=== PATIENT | male | born 1945 | race Caucasian/White ===

== ENCOUNTER → 2017-05-27 | Outpatient (REF) | payer MEDICARE ==
[~2017-05-27] MED LIST: /WARF25TA PO; ACET50TA PO; ALLO10TA PO; CEPH500C PO; FEOS200T2 PO; FURO20TA2 PO; GLIP5TAB2 PO; JANU100T PO; KLOR8TAB PO; LASI20TA PO; LIVA2TAB PO; MAGN400C2 PO; MULTTAB4 PO; OMEG12002 PO; OMEP20CA3 PO; PERC7.5T12 PO; PERCOCET PO; PIOG30TA4 PO; PRIN10TA PO; RANI1TAB6 PO; RED600TA PO; REDCAP3 PO; SPIR25TA2 PO; VICT18IN SC; ZEST40TA PO
[2017-05-27 14:33] LABS: PERCENT SATURATION 25.4 % (19.7-50.0)
== END ==
LOC: M LAB REF 13:12
PROVIDERS: ATTEND Internal Medicine Nephrology
DX: D64.9 Anemia, unspecified (principal)

== ENCOUNTER → 2017-11-11 | Outpatient (CLI) | payer MEDICARE ==
[2017-11-11 12:23] LABS: HEMATOCRIT 40.6 % (42.0-52.0); HEMOGLOBIN 13.6 g/dl (14.0-18.0); MEAN CORPUSCULAR HEMOGLOBIN 30.4 pg (27.0-33.0); MEAN CORPUSCULAR HGB CONC 33.5 g/dl (32.0-36.5); MEAN CORPUSCULAR VOLUME 90.6 fl (80.0-96.0); PLATELET COUNT, AUTOMATED 229 10^3/uL (150-450); RED BLOOD COUNT 4.48 10^6/uL (4.30-6.10); RED CELL DISTRIBUTION WIDTH 12.4 % (11.5-14.5); WHITE BLOOD COUNT 8.8 10^3/uL (4.0-10.0)
[2017-11-11 12:28] LABS: APPEARANCE, URINE CLEAR (CLEAR); BACTERIA, URINE AUTO NEGATIVE (NEGATIVE); BILIRUBIN, URINE AUTO NEGATIVE (NEGATIVE); BLOOD, URINE BLOOD NEGATIVE (NEGATIVE); COLOR, URINE YELLOW (YELLOW); GLUCOSE, URINE (UA) AUTO 1+ mg/dL (NEGATIVE); KETONE, URINE AUTO NEGATIVE (NEGATIVE); LEUKOCYTE ESTERASE, URINE AUTO NEGATIVE (NEGATIVE); NITRITE, URINE AUTO NEGATIVE (NEGATIVE); PROTEIN, URINE AUTO NEGATIVE (NEGATIVE); RBC, URINE AUTO 3 /HPF (0-3); SPECIFIC GRAVITY URINE AUTO 1.018 (1.002-1.035); SQUAMOUS EPITHELIAL CELL UR AU 0 /HPF (0-6); UROBILINOGEN, URINE AUTO 0.2 mg/dL (0.0-2.0); WBC, URINE AUTO 0 /HPF (0-3)
[2017-11-11 12:36] LABS: PROTHROMBIN TIME 12.2 SECONDS (12.4-14.5)
[2017-11-11 13:01] LABS: ERYTHROCYTE SEDIMENTATION RATE 27 mm/hr (0-20)
[2017-11-11 13:09] LABS: ALBUMIN 3.8 GM/DL (3.2-5.2); ALBUMIN/GLOBULIN RATIO 1.09 (1.00-1.93); ALKALINE PHOSPHATASE 76 U/L (45-117); ALT/SGPT 44 U/L (12-78); ANION GAP 8 MEQ/L (8-16); AST/SGOT 23 U/L (7-37); BILIRUBIN,TOTAL 0.2 MG/DL (0.2-1.0); BLOOD UREA NITROGEN 30 MG/DL (7-18); CARBON DIOXIDE LEVEL 25 MEQ/L (21-32); CHLORIDE LEVEL 106 MEQ/L (98-107); CREATININE FOR GFR 1.48 MG/DL (0.70-1.30); GLUCOSE, FASTING 252 MG/DL (70-100); POTASSIUM SERUM 4.4 MEQ/L (3.5-5.1); SODIUM LEVEL 139 MEQ/L (136-145); TOTAL PROTEIN 7.3 GM/DL (6.4-8.2)
== END ==
LOC: M ADMPAT 10:25
DX: Z01.818 Encounter for other preprocedural examination (principal); M17.12 Unilateral primary osteoarthritis, left knee; I10 Essential (primary) hypertension; E11.9 Type 2 diabetes mellitus without complications; N18.3 Chronic kidney disease, stage 3 (moderate); I25.10 Atherosclerotic heart disease of native coronary artery without angina pectoris; E78.00 Pure hypercholesterolemia, unspecified; Z79.899 Other long term (current) drug therapy
CPT/HCPCS: 71046

== ENCOUNTER 2017-12-02 10:59 | Inpatient (IN) | payer MEDICARE ==
[2017-12-02] MEDS: LR 1,000 ML IV ×3 (11:30→17:51)
[2017-12-02] MEDS ORDERED: LIDOCAINE 1% MDV 20ML VIAL SQ (11:30)
[2017-12-02] MEDS: ACETAMINOPHEN 500 MG TAB PO (12:05)
[2017-12-02] MEDS ORDERED: MIDAZOLAM INJ 2 MG/2 ML VIAL (J2250) As Ordered ×3 (12:13→13:01)
[2017-12-02] MEDS ORDERED: fentaNYL 100 MCG/2 ML INJECTION (J3010) As Ordered ×2 (12:13→13:01)
[2017-12-02] MEDS: BUPIVACAINE HCL 0.25% 30 ML VIAL As Ordered (12:35)
[2017-12-02] MEDS: fentaNYL 100 MCG/2 ML INJECTION (J3010) IV (12:48)
[2017-12-02] MEDS: MIDAZOLAM INJ 2 MG/2 ML VIAL (J2250) IV ×3 (12:48→12:54)
[2017-12-02] MEDS ORDERED: ONDANSETRON 4MG/2ML VIAL (J2405) As Ordered (13:01)
[2017-12-02] MEDS ORDERED: LIDOCAINE 2% INJ 100 MG/5 ML SDV (FOR ANES.) As Ordered (13:01)
[2017-12-02] MEDS ORDERED: PROPOFOL 200 MG/20 ML VIAL As Ordered (13:01)
[2017-12-02] MEDS ORDERED: ePHEDrine SULFATE 25 MG/5 ML(5MG/ML) SYRINGE As Ordered (13:20)
[2017-12-02 13:45] LABS: BEDSIDE GLUCOSE 151 MG/DL (83-110)
[2017-12-02] MEDS: EPINEPHrine INJ 1 MG/ML 1ML AMP As Ordered (14:05)
[2017-12-02] MEDS: ceFAZolin 1GM INJ (J0690 PER 500MG) As Ordered (14:06)
[2017-12-02] MEDS: TRANEXAMIC ACID 100 MG/ML 10ML VIAL As Ordered (14:06)
[2017-12-02] MEDS: BUPIVACAINE LIPOSOME/PF 1.3% 20 ML VIAL (13.3MG/ML)(EXPAREL) As Ordered (14:38)
[2017-12-02] MEDS: BUPIVACAINE HCL 0.25% 10 ML VIAL As Ordered (14:38)
[2017-12-02] MEDS ORDERED: fentaNYL 100 MCG/2 ML INJECTION (J3010) IV (15:30)
[2017-12-02] MEDS ORDERED: NALBUPHINE HCL 10 MG/ML AMP (J2300) IV (15:30)
[2017-12-02] MEDS ORDERED: diphenhydrAMINE INJ 50MG/ML VIAL (J1200) IV (15:30)
[2017-12-02] MEDS ORDERED: MORPHINE 10 MG/ML 1ML VIAL (J2270) IV (15:30)
[2017-12-02] MEDS ORDERED: ONDANSETRON 4MG/2ML VIAL (J2405) IV ×2 (15:30)
[2017-12-02] MEDS ORDERED: EPIDURAL/PCA KEYS XX (15:30)
[2017-12-02] MEDS ORDERED: NALOXONE INJ 0.4 MG/1 ML VIAL (J2310) IV (15:30)
[2017-12-02] MEDS ORDERED: PERCOCET 5MG/325MG TAB PO (15:30)
[2017-12-02] MEDS ORDERED: ACETAMINOPHEN TAB 650MG DOSE (2X325MG) PO (15:45)
[2017-12-02] MEDS ORDERED: FLEET ENEMA PR (15:45)
[2017-12-02] MEDS ORDERED: GLUCAGON FOR INJ 1 MG VIAL (J1610) SC (15:45)
[2017-12-02] MEDS ORDERED: GLUCOSE 4 GM CHEW TABLET PO (15:45)
[2017-12-02] MEDS: MORPHINE 1MG/ML IN 0.9% NACL 100ML IV BAG IV (15:45)
[2017-12-02] MEDS ORDERED: DEXTROSE 50% 50 ML SYRINGE IV (15:45)
[2017-12-02] MEDS ORDERED: LIDOCAINE 1% MDV 20ML VIAL (16:22)
[2017-12-02] MEDS ORDERED: ROPIvacaine 0.5% 30 ML INJECTION (J2795 PER 1MG) (16:22)
[2017-12-02] MEDS ORDERED: dexameTHASONE 10 MG/1 ML VIAL PRES.FREE (J1100) (16:22)
[2017-12-02] MEDS: HumaLOG INSULIN (NovoLOG) PER UNIT SC ×2 (17:52→21:23)
[2017-12-02] MEDS: WARFARIN SOD 5 MG TAB PO (17:52)
[2017-12-02] MEDS: VITAMIN D 1,000 INTERNATIONAL UNITS TABLET PO (17:53)
[2017-12-02] MEDS: MULTIVITAMINS/MINERALS THERAP 1 TAB PO (17:53)
[2017-12-02] MEDS: ALLOPURINOL 100 MG TAB PO (17:53)
[2017-12-02] MEDS: OMEPRAZOLE 20 MG CAP PO (21:22)
[2017-12-03] MEDS: LR 1,000 ML IV (04:15)
[2017-12-03] MEDS ORDERED: PERCOCET 5MG/325MG TAB PO (06:45)
[2017-12-03] MEDS ORDERED: ONDANSETRON 4 MG TAB (S0181) PO (06:45)
[2017-12-03 07:21] LABS: HEMATOCRIT 33.4 % (42.0-52.0); HEMOGLOBIN 11.5 g/dl (13.5-17.5); MEAN CORPUSCULAR HEMOGLOBIN 30.9 pg (27.0-33.0); MEAN CORPUSCULAR HGB CONC 34.4 g/dl (32.0-36.5); MEAN CORPUSCULAR VOLUME 89.8 fl (80.0-96.0); PLATELET COUNT, AUTOMATED 195 10^3/uL (150-450); RED BLOOD COUNT 3.72 10^6/uL (4.30-6.10); RED CELL DISTRIBUTION WIDTH 12.3 % (11.5-14.5); WHITE BLOOD COUNT 15.8 10^3/uL (4.0-10.0)
[2017-12-03 07:29] LABS: INR 1.07
[2017-12-03 07:33] LABS: ANION GAP 7 MEQ/L (8-16); BLOOD UREA NITROGEN 22 MG/DL (7-18); CALCIUM LEVEL 8.5 MG/DL (8.8-10.2); CARBON DIOXIDE LEVEL 25 MEQ/L (21-32); CHLORIDE LEVEL 105 MEQ/L (98-107); CREATININE FOR GFR 1.38 MG/DL (0.70-1.30); GLOMERULAR FILTRATION RATE 54.1 (>42); GLUCOSE, FASTING 270 MG/DL (70-100); POTASSIUM SERUM 4.4 MEQ/L (3.5-5.1); SODIUM LEVEL 137 MEQ/L (136-145)
[2017-12-03] MEDS: MOM 30ML SUSPENSION UDC PO (09:00)
[2017-12-03] MEDS: MIRALAX *UNIT DOSE* 17GM PACKET PO (09:00)
[2017-12-03] MEDS: SENOKOT S TAB PO (09:00)
[2017-12-03] MEDS: PERCOCET 5MG/325MG TAB PO (09:01)
[2017-12-03] MEDS: HumaLOG INSULIN (NovoLOG) PER UNIT SC (09:02)
[2017-12-03] MEDS: ALLOPURINOL 100 MG TAB PO (10:00)
[2017-12-03] MEDS: MULTIVITAMINS/MINERALS THERAP 1 TAB PO (10:00)
[2017-12-03] MEDS: OMEPRAZOLE 20 MG CAP PO (10:00)
[2017-12-03] MEDS: VITAMIN D 1,000 INTERNATIONAL UNITS TABLET PO (10:01)
[2017-12-03] MEDS: ENOXAPARIN 40 MG/0.4 ML SYRINGE (J1650) SC (10:13)
[2017-12-03 16:53] LABS: BEDSIDE GLUCOSE 328 MG/DL (83-110)
[2017-12-03 16:53] LABS: BEDSIDE GLUCOSE 231 MG/DL (83-110)
[2017-12-03] MEDS ORDERED: WARFARIN SOD 5 MG TAB PO (17:00)
== END 2017-12-03 12:00 | disposition home health service (06) | DRG 470 ==
LOC: M OR 10:59 → M MS5PR 16:11
PROVIDERS: Orthopaedic Surgery
PROC: 0SRD0J9 Replacement of Left Knee Joint with Synthetic Substitute, Cemented, Open Approach (ICD-10-PCS; principal; 2017-12-02 13:05)
DX: M17.12 Unilateral primary osteoarthritis, left knee (principal); E11.22 Type 2 diabetes mellitus with diabetic chronic kidney disease; I12.9 Hypertensive chronic kidney disease with stage 1 through stage 4 chronic kidney disease, or unspecified chronic kidney disease; K21.9 Gastro-esophageal reflux disease without esophagitis; R26.89 Other abnormalities of gait and mobility; M10.9 Gout, unspecified; G47.00 Insomnia, unspecified; J30.9 Allergic rhinitis, unspecified; D64.9 Anemia, unspecified; E78.5 Hyperlipidemia, unspecified; G47.30 Sleep apnea, unspecified; N18.3 Chronic kidney disease, stage 3 (moderate); Z79.82 Long term (current) use of aspirin; Z79.4 Long term (current) use of insulin; Z79.899 Other long term (current) drug therapy; Z96.651 Presence of right artificial knee joint; Z85.46 Personal history of malignant neoplasm of prostate; Z88.8 Allergy status to other drugs, medicaments and biological substances

== ENCOUNTER → 2017-12-05 | Outpatient (REF) | payer MEDICARE ==
[2017-12-05 13:42] LABS: INR 1.53; PROTHROMBIN TIME 18.8 SECONDS (12.4-14.5)
== END ==
LOC: M SHH 12:55
DX: Z79.01 Long term (current) use of anticoagulants (principal)
CPT/HCPCS: 85610

== ENCOUNTER → 2017-12-12 | Outpatient (REF) | payer MEDICARE ==
[2017-12-12 13:08] LABS: INR 2.23; PROTHROMBIN TIME 25.5 SECONDS (12.4-14.5)
== END ==
LOC: M SHH 12:47
DX: Z79.01 Long term (current) use of anticoagulants (principal)
CPT/HCPCS: 85610

== ENCOUNTER → 2017-12-16 | Outpatient (REF) | payer MEDICARE ==
[2017-12-16 13:24] LABS: INR 2.04; PROTHROMBIN TIME 23.8 SECONDS (12.4-14.5)
== END ==
LOC: M SHH 12:38
DX: Z51.81 Encounter for therapeutic drug level monitoring (principal); Z79.01 Long term (current) use of anticoagulants
CPT/HCPCS: 85610

== ENCOUNTER → 2017-12-19 | Outpatient (REF) | payer MEDICARE ==
[2017-12-19 10:39] LABS: INR 2.17
== END ==
LOC: M SHH 10:21
DX: Z79.01 Long term (current) use of anticoagulants (principal)
CPT/HCPCS: 85610

== ENCOUNTER → 2017-12-23 | Outpatient (REF) | payer MEDICARE ==
[2017-12-23 13:46] LABS: INR 1.77; PROTHROMBIN TIME 21.2 SECONDS (12.4-14.5)
== END ==
LOC: M SHH 13:21
DX: Z79.01 Long term (current) use of anticoagulants (principal)
CPT/HCPCS: 85610

== ENCOUNTER → 2017-12-26 | Outpatient (REF) | payer MEDICARE ==
[2017-12-26 12:57] LABS: PROTHROMBIN TIME 16.5 SECONDS (12.4-14.5)
== END ==
LOC: M SHH 12:32
DX: Z79.01 Long term (current) use of anticoagulants (principal)
CPT/HCPCS: 85610

== ENCOUNTER → 2017-12-30 | Outpatient (REF) | payer MEDICARE ==
[2017-12-30 12:15] LABS: INR 1.34; PROTHROMBIN TIME 16.9 SECONDS (12.4-14.5)
== END ==
LOC: M LABDRAW1 09:52
DX: Z79.01 Long term (current) use of anticoagulants (principal)
CPT/HCPCS: 85610

== ENCOUNTER → 2020-05-20 | Outpatient (CLI) | payer MEDICARE ==
[~2020-05-20] MED LIST changes: -/WARF25TA PO; -ACET50TA PO; +ASPI81TA26 PO; +COUM1TAB18 PO; +COUM2.5T17 PO; +FISH1360 PO; -LASI20TA PO; +LASI20TA3 PO; +MAPA500T17 PO; +MULTLIQ PO; +OMEP1CAP73 PO; -OMEP20CA3 PO; +PERC5TAB12 PO; +PIOG1TAB37 PO; -PIOG30TA4 PO; +RANI-397 PO; -RANI1TAB6 PO; +SPIR-10 PO; -SPIR25TA2 PO; +VITA100067 PO
--- NOTE | 2020-05-27 07:38 | SLEEPCENT ---
DATE: 05/20/2020 ORDERED BY: Samanta Ramirez PA-C Nocturnal polysomnography was performed for re-titration of pressure therapy in this patient with a prior history of obstructive sleep apnea syndrome. For testing, a [employer] Farrar nasal pillow device of small size was used, 9 cm of water pressure were applied to the circuit, and the lights were extinguished. Seven hours and 14 minutes of data were reviewed. There were 265 minutes of sleep identified. Sleep latency was short at 5.5 minutes. REM latency was mildly prolonged at 129 minutes. Sleep architecture was fair, there were two REM cycles noted, significant periods of wake were noted. Overall sleep efficiency was only 61.6%. The electrocardiogram showed a sinus rhythm with PVCs, average heart rate was 62 beats per minute. EEG showed reasonably normal waveforms for awake and sleep. Respiratory events were fully palliated with CPAP at a pressure of 9. Significant activity was noted in the limb leads despite the optimal CPAP pressure. The limb movement arousal index was 10.9. IMPRESSIONS: 1. Obstructive sleep apnea syndrome (G47.33). 2. Periodic limb movement disorder (G47.61). Limb movement arousal index 10.9. RECOMMENDATION: Nightly use of pressure therapy at 9 cm was sufficient to overcome any obstructive respiratory events that may have been experienced. Interventions to treat the frequency arousal from limb activity may improve the quality of the patients sleep. [facility]
== END ==
LOC: M SLEEP 20:00
PROVIDERS: ATTEND Nurse Practitioner Family
DX: G47.33 Obstructive sleep apnea (adult) (pediatric) (principal); G47.61 Periodic limb movement disorder

== ENCOUNTER → 2020-10-06 | Outpatient (CLI) | payer MEDICARE ==
[2020-10-06 13:27] LABS: BASO # 0.1 10^3/uL (0.0-0.2); BASO % 0.6 % (0.0-1.0); EOS # 0.2 10^3/uL (0.0-0.5); EOS % 1.8 % (0.0-3.0); HEMOGLOBIN 15.9 g/dl (13.5-17.5); LYMPH % 12.7 % (24.0-44.0); MEAN CORPUSCULAR HEMOGLOBIN 30.8 pg (27.0-33.0); MEAN CORPUSCULAR HGB CONC 33.1 g/dl (32.0-36.5); MONO # 0.7 10^3/uL (0.0-0.8); MONO % 8.6 % (0.0-5.0); NEUTROPHILS # 6.2 10^3/uL (1.5-8.5); NEUTROPHILS % 75.7 % (36.0-66.0); PLATELET COUNT, AUTOMATED 214 10^3/uL (150-450); RED BLOOD COUNT 5.16 10^6/uL (4.30-6.10); WHITE BLOOD COUNT 8.2 10^3/uL (4.0-10.0)
[2020-10-06 14:00] LABS: FREE T4 0.74 NG/DL (0.76-1.46); RHEUMATOID FACTOR QUANT < 10.0 IU/ML (<15.0)
[2020-10-06 14:08] LABS: ERYTHROCYTE SEDIMENTATION RATE 18 mm/hr (0-20)
[2020-10-07 17:12] LABS: ANTINUCLEAR ANTIBODIES DIRECT Negative (Negative); Lyme Disease IgG/IgM Antibodie <0.91 ISR (0.00-0.90); Lyme Disease IgM Ab Quantitati <0.80 index (0.00-0.79)
== END ==
LOC: M PLALAB 11:55
PROVIDERS: ATTEND Orthopaedic Surgery
DX: M25.531 Pain in right wrist (principal); Z79.899 Other long term (current) drug therapy

== ENCOUNTER → 2021-03-02 | Outpatient (REF) | payer MEDICARE ==
[2021-03-02 17:54] LABS: BASO % 0.5 % (0.0-1.0); EOS # 0.3 10^3/uL (0.0-0.5); EOS % 4.5 % (0.0-3.0); HEMATOCRIT 49.9 % (42.0-52.0); HEMOGLOBIN 15.9 g/dl (13.5-17.5); LYMPH # 1.3 10^3/uL (1.5-5.0); MEAN CORPUSCULAR HEMOGLOBIN 30.5 pg (27.0-33.0); MEAN CORPUSCULAR HGB CONC 31.9 g/dl (32.0-36.5); MEAN CORPUSCULAR VOLUME 95.6 fl (80.0-96.0); MONO # 0.7 10^3/uL (0.0-0.8); MONO % 8.9 % (2.0-8.0); NEUTROPHILS % 67.7 % (36.0-66.0); PLATELET COUNT, AUTOMATED 241 10^3/uL (150-450); RED BLOOD COUNT 5.22 10^6/uL (4.30-6.10); WHITE BLOOD COUNT 7.3 10^3/uL (4.0-10.0)
[2021-03-02 18:00] LABS: APPEARANCE, URINE TURBID (CLEAR); BACTERIA, URINE AUTO NEGATIVE (NEGATIVE); BILIRUBIN, URINE AUTO NEGATIVE (NEGATIVE); BLOOD, URINE BLOOD NEGATIVE (NEGATIVE); COLOR, URINE YELLOW (YELLOW); GLUCOSE, URINE (UA) AUTO 3+ mg/dL (NEGATIVE); KETONE, URINE AUTO NEGATIVE (NEGATIVE); LEUKOCYTE ESTERASE, URINE AUTO NEGATIVE (NEGATIVE); NITRITE, URINE AUTO NEGATIVE (NEGATIVE); PROTEIN, URINE AUTO NEGATIVE (NEGATIVE); RBC, URINE AUTO 0 /HPF (0-3); SPECIFIC GRAVITY URINE AUTO 1.022 (1.002-1.035); SQUAMOUS EPITHELIAL CELL UR AU 0 /HPF (0-6); UROBILINOGEN, URINE AUTO 0.2 mg/dL (0.0-2.0); WBC, URINE AUTO 0 /HPF (0-3)
[2021-03-02 18:15] LABS: C REACTIVE PROTEIN QUANTITATIV 1.42 MG/DL (0.00-0.30); CALCIUM LEVEL 9.4 MG/DL (8.8-10.2); CREATININE FOR GFR 1.28 MG/DL (0.70-1.30); GLOMERULAR FILTRATION RATE 58.5 (>42); POTASSIUM SERUM 4.1 MEQ/L (3.5-5.1)
[2021-03-02 18:16] LABS: TOTAL PROTEIN,RANDOM URINE 21.2 MG/DL (0.0-12.0)
[2021-03-02 19:18] LABS: ERYTHROCYTE SEDIMENTATION RATE 25 mm/hr (0-20)
[2021-03-08 09:54] LABS: DRVV SCREEN 48.1 SEC
[2021-03-08 10:10] LABS: PTT LUPUS TYPE ANTICOAG SCREEN 1.2 (0-1.2)
[2021-03-08 10:19] LABS: DRVV CONFIRM 37.2 SEC; NORMALIZED RATIO 1.2 (0.00-1.20)
== END ==
LOC: M SFHCRHEU 10:39
PROVIDERS: ATTEND Internal Medicine
DX: M06.4 Inflammatory polyarthropathy (principal); M10.00 Idiopathic gout, unspecified site; N18.30 Chronic kidney disease, stage 3 unspecified

== ENCOUNTER → 2021-05-17 | Outpatient (CLI) | payer MEDICARE ==
--- NOTE | 2021-05-17 11:24 | REP ---
INDICATION: UNDIFFERENTIATED INFLAMMATORY ARTHRITIS COMPARISON: None. TECHNIQUE: Four views bilateral hands. FINDINGS: There is no evidence of acute fracture, dislocation, or intrinsic bone disease.On the right, there is moderate narrowing of the 1st metacarpophalangeal joint with mild subchondral sclerosis and spurring, with similar findings that all of the distal interphalangeal joints. There is mild diffuse narrowing of the proximal interphalangeal joints. On the left, there is moderate narrowing of the 1st metacarpophalangeal joint with mild subchondral sclerosis. There is moderate diffuse narrowing of distal interphalangeal joints with subchondral sclerosis and mild spurring. There is mild diffuse narrowing of the proximal interphalangeal joints. IMPRESSION: No fracture or dislocation. Degenerative changes as above. <Electronically signed by Kali Quintero > 05/17/21 [id number]
--- NOTE | 2021-05-17 11:28 | REP ---
INDICATION: UNDIFFERENTIATED INFLAMMATORY ARTHRITIS. COMPARISON: None. TECHNIQUE: Four views each foot FINDINGS: Right foot: Mild to moderate degenerative changes are seen throughout the foot. There is a large plantar and a small retrocalcaneal heel spur. There is no acute fracture, dislocation, or subluxation. Left foot: Mild degenerative changes seen throughout the foot. There is a tiny calcification seen just proximal to the proximal medial aspect of the navicular. Small plantar and retrocalcaneal heel spurs are present. IMPRESSION: Bilateral chronic changes. <Electronically signed by Michael Walton > 05/17/21 [id number]
--- NOTE | 2021-05-17 11:36 | REP ---
INDICATION: UNDIFFERENTIATED INFLAMMATORY ARTHRITIS COMPARISON: None. TECHNIQUE: Four views bilateral ankles. FINDINGS: There is no evidence of acute fracture, dislocation, or intrinsic bone disease.On the left, a subcentimeter round calcific density along the lateral malleolus could represent an old avulsion fracture. There is mild subchondral sclerosis along the tibiotalar joint. There is a small calcific body at the posterior margin of the tibiotalar joint subcentimeter in size. There is moderate inferior calcaneal spurring. On the right a couple of smoothly marginated calcific densities along the distal aspect of the medial malleolus may represent old avulsion fractures or ligamentous calcifications. There is mild subchondral sclerosis along the tibiotalar joint. There is moderate inferior calcaneal spurring. IMPRESSION: No acute fracture or dislocation, with possible old avulsion fractures as discussed above.. Degenerative changes as above. <Electronically signed by Kali Quintero > 05/17/21 1420
== END ==
LOC: M WUC 10:53
PROVIDERS: ATTEND Internal Medicine
DX: M06.4 Inflammatory polyarthropathy (principal)

== ENCOUNTER → 2021-06-06 | Outpatient (REF) | payer MEDICARE | LOC: M LAB REF 12:47 | PROVIDERS: ATTEND Nurse Practitioner Family | DX: E83.42 Hypomagnesemia (principal) ==

== ENCOUNTER → 2021-10-25 | Outpatient (CLI) | payer MEDICARE | LOC: M RAD 09:34 | PROVIDERS: ATTEND Nurse Practitioner Family | DX: N18.31 Chronic kidney disease, stage 3a (principal); Z85.46 Personal history of malignant neoplasm of prostate ==

== ENCOUNTER → 2021-11-20 | Outpatient (CLI) | payer MEDICARE ==
[~2021-11-20] MED LIST changes: +ISOVUE-370 76% 100ML VIAL As Ordered ONE
== END ==
LOC: M RAD 15:04
PROVIDERS: ATTEND Nurse Practitioner Family
DX: D41.02 Neoplasm of uncertain behavior of left kidney (principal)
CPT/HCPCS: 74170; Q9967

== ENCOUNTER → 2022-03-26 | Outpatient (REF) | payer MEDICARE ==
[~2022-03-26] MED LIST changes: -ISOVUE-370 76% 100ML VIAL As Ordered ONE
== END ==
LOC: M SFHCRHEU 11:33
PROVIDERS: ATTEND Internal Medicine
DX: M06.00 Rheumatoid arthritis without rheumatoid factor, unspecified site (principal)

== ENCOUNTER → 2022-03-28 | Outpatient (CLI) | payer MEDICARE ==
[2022-03-28 12:18] LABS: BASO % 0.4 % (0.0-1.0); EOS % 0.1 % (0.0-3.0); HEMATOCRIT 39.9 % (42.0-52.0); HEMOGLOBIN 12.8 g/dl (13.5-17.5); LYMPH # 0.7 10^3/uL (1.5-5.0); LYMPH % 6.3 % (24.0-44.0); MEAN CORPUSCULAR HEMOGLOBIN 30.6 pg (27.0-33.0); MEAN CORPUSCULAR HGB CONC 32.1 g/dl (32.0-36.5); MEAN CORPUSCULAR VOLUME 95.5 fl (80.0-96.0); MONO # 0.5 10^3/uL (0.0-0.8); MONO % 4.6 % (2.0-8.0); NEUTROPHILS # 9.6 10^3/uL (1.5-8.5); NEUTROPHILS % 87.7 % (36.0-66.0); PLATELET COUNT, AUTOMATED 262 10^3/uL (150-450); RED BLOOD COUNT 4.18 10^6/uL (4.30-6.10); WHITE BLOOD COUNT 10.9 10^3/uL (4.0-10.0)
[2022-03-28 12:47] LABS: ERYTHROCYTE SEDIMENTATION RATE 48 mm/hr (0-20)
[2022-03-28 12:54] LABS: ALBUMIN 3.8 GM/DL (3.2-5.2); ALT/SGPT 21 U/L (12-78); BILIRUBIN,DIRECT < 0.1 MG/DL (0.0-0.2); BILIRUBIN,TOTAL 0.2 MG/DL (0.2-1.0); BLOOD UREA NITROGEN 36 MG/DL (7-18); C REACTIVE PROTEIN QUANTITATIV 1.44 MG/DL (0.00-0.30); CALCIUM LEVEL 9.5 MG/DL (8.8-10.2); CARBON DIOXIDE LEVEL 24 MEQ/L (21-32); CHLORIDE LEVEL 107 MEQ/L (98-107); GLOMERULAR FILTRATION RATE 31.2 (>42); GLUCOSE, FASTING 205 MG/DL (70-100); POTASSIUM SERUM 4.9 MEQ/L (3.5-5.1); SODIUM LEVEL 139 MEQ/L (136-145); TOTAL PROTEIN 7.6 GM/DL (6.4-8.2)
== END ==
LOC: M WUC 09:07
PROVIDERS: ATTEND Internal Medicine
DX: M06.00 Rheumatoid arthritis without rheumatoid factor, unspecified site (principal)

== ENCOUNTER → 2022-04-04 | Outpatient (CLI) | payer MEDICARE | LOC: M RAD 07:53 | PROVIDERS: ATTEND Urology | DX: C64.1 Malignant neoplasm of right kidney, except renal pelvis (principal) | CPT/HCPCS: 78306; A9503 ==

== ENCOUNTER → 2022-04-23 | Outpatient (CLI) | payer MEDICARE ==
[2022-04-23 11:17] LABS: BASO # 0.1 10^3/uL (0.0-0.2); BASO % 0.7 % (0.0-1.0); EOS # 0.5 10^3/uL (0.0-0.5); EOS % 5.4 % (0.0-3.0); HEMOGLOBIN 13.4 g/dl (13.5-17.5); LYMPH # 1.1 10^3/uL (1.5-5.0); LYMPH % 13.2 % (24.0-44.0); MEAN CORPUSCULAR HEMOGLOBIN 31.1 pg (27.0-33.0); MEAN CORPUSCULAR HGB CONC 33.5 g/dl (32.0-36.5); MEAN CORPUSCULAR VOLUME 92.8 fl (80.0-96.0); MONO # 0.8 10^3/uL (0.0-0.8); MONO % 8.8 % (2.0-8.0); NEUTROPHILS # 6.1 10^3/uL (1.5-8.5); PLATELET COUNT, AUTOMATED 248 10^3/uL (150-450); RED BLOOD COUNT 4.31 10^6/uL (4.30-6.10); WHITE BLOOD COUNT 8.6 10^3/uL (4.0-10.0)
[2022-04-23 11:55] LABS: ALBUMIN 3.6 GM/DL (3.2-5.2); BILIRUBIN,TOTAL 0.2 MG/DL (0.2-1.0); CALCIUM LEVEL 9.4 MG/DL (8.8-10.2); CREATININE FOR GFR 2.41 MG/DL (0.70-1.30); FREE T3 2.4 PG/ML (2.2-4.0); FREE T4 0.65 NG/DL (0.76-1.46); GLOMERULAR FILTRATION RATE 28.1 (>42); POTASSIUM SERUM 4.6 MEQ/L (3.5-5.1); THYROID STIMULATING HORMONE 1.63 uIU/ML (0.358-3.740); TOTAL PROTEIN 7.3 GM/DL (6.4-8.2)
== END ==
LOC: M LAB 10:44
PROVIDERS: ATTEND Urology
DX: C64.1 Malignant neoplasm of right kidney, except renal pelvis (principal); Z79.899 Other long term (current) drug therapy

== ENCOUNTER → 2022-05-04 | Outpatient (CLI) | payer MEDICARE | LOC: M RAD 10:35 | PROVIDERS: ATTEND Physician Assistant | DX: K40.90 Unilateral inguinal hernia, without obstruction or gangrene, not specified as recurrent (principal) ==

== ENCOUNTER → 2022-05-30 | Outpatient (CLI) | payer MEDICARE | LOC: M SOG 08:13 | PROVIDERS: ATTEND Orthopaedic Surgery | DX: M25.532 Pain in left wrist (principal); M25.531 Pain in right wrist ==

== ENCOUNTER → 2022-06-27 | Outpatient (CLI) | payer MEDICARE ==
[~2022-06-27] MED LIST changes: +BASA100I SQ; +DULO1CAP5 PO; +FAMO20TA5 PO; +GLIP5TAB8 PO; +HYDR200T3 PO; +METO5TAB2 PO; +ROSU10TA6 PO; +SERT50TA29 PO; +TRUL0.5I SC
== END ==
LOC: M LABSMTC 10:59
PROVIDERS: ATTEND Anesthesiology
DX: Z01.812 Encounter for preprocedural laboratory examination (principal); Z11.52 Encounter for screening for COVID-19

== ENCOUNTER 2022-07-02 08:26 | Day surgery (SDC) | payer MEDICARE ==
[~2022-07-02] VITALS: Ht 160 cm; Wt 108.9 kg
[~2022-07-02 08:26] MED LIST changes: +LIDOCAINE 2% 100MG/5ML SDV (FOR ANES.) As Ordered ONE; +ONDANSETRON 4MG 2ML VIAL As Ordered ONE; +dexameTHASONE 4 MG/ML 1ML VIAL (J1100 PER 1MG) As Ordered ONE; +fentaNYL 100 MCG/2 ML INJECTION As Ordered ONE; +propofoL 200 MG/20 ML VIAL As Ordered ONE
[2022-07-02] MEDS ORDERED: LR 1,000 ML IV SCH ×2 (09:35→11:10)
[2022-07-02] MEDS ORDERED: BUPIVACAINE/EPIN 0.5% 30 ML VIAL As Ordered ONE (09:54)
[2022-07-02] MEDS ORDERED: MIDAZOLAM INJ 2MG/2ML VIAL (J2250 PER 1MG) As Ordered ONE (10:20)
[2022-07-02] MEDS ORDERED: propofoL 200 MG/20 ML VIAL As Ordered ONE (10:41)
[2022-07-02] MEDS ORDERED: fentaNYL 100 MCG/2 ML INJECTION IV PRN (11:10)
[2022-07-02] MEDS ORDERED: ONDANSETRON 4MG 2ML VIAL IV PRN (11:10)
[2022-07-02] MEDS ORDERED: HYDROMORPHONE HCL 0.5 MG/ 0.5 ML SYRINGE (J1170 PER 1) IV PRN (11:10)
[2022-07-02] MEDS ORDERED: oxyCODONE 5MG TAB PO PRN (11:10)
[2022-07-02 11:55] VITALS: BP 182/77
[2022-07-02] MEDS ORDERED: SEVOFLURANE INHAL SOLN 250 ML BTL As Ordered ONE (18:31)
== END 2022-07-02 12:18 | disposition home or self-care (01) ==
LOC: M SDC 08:26
PROVIDERS: ATTEND Orthopaedic Surgery
DX: G56.01 Carpal tunnel syndrome, right upper limb (principal); I10 Essential (primary) hypertension; E11.9 Type 2 diabetes mellitus without complications; N28.89 Other specified disorders of kidney and ureter; Z91.048 Other nonmedicinal substance allergy status; Z88.8 Allergy status to other drugs, medicaments and biological substances
CPT/HCPCS: 29848; J1100; J2250; J2405; J3010

== ENCOUNTER → 2022-08-06 | Outpatient (CLI) | payer MEDICARE ==
[~2022-08-06] MED LIST changes: +ISOVUE-370 76% 100ML VIAL As Ordered ONE; -LIDOCAINE 2% 100MG/5ML SDV (FOR ANES.) As Ordered ONE; -ONDANSETRON 4MG 2ML VIAL As Ordered ONE; -dexameTHASONE 4 MG/ML 1ML VIAL (J1100 PER 1MG) As Ordered ONE; -fentaNYL 100 MCG/2 ML INJECTION As Ordered ONE; -propofoL 200 MG/20 ML VIAL As Ordered ONE
== END ==
LOC: M RAD 10:31
PROVIDERS: ATTEND Urology
DX: C64.1 Malignant neoplasm of right kidney, except renal pelvis (principal)
CPT/HCPCS: 71260; 74177; Q9967

== ENCOUNTER → 2022-10-11 | Outpatient (CLI) | payer MEDICARE ==
[~2022-10-11] MED LIST changes: -ISOVUE-370 76% 100ML VIAL As Ordered ONE
== END ==
LOC: M RAD 11:35
PROVIDERS: ATTEND Nurse Practitioner Family
DX: R06.00 Dyspnea, unspecified (principal); R05.9 Cough, unspecified

== ENCOUNTER → 2022-10-23 | Outpatient (REF) | payer MEDICARE | LOC: M LAB REF 13:05 | PROVIDERS: ATTEND Internal Medicine Gastroenterology | DX: R19.4 Change in bowel habit (principal) ==

== ENCOUNTER → 2022-11-16 | Outpatient (CLI) | payer MEDICARE ==
[~2022-11-16] MED LIST changes: +ALBU90AE IH; +SEMA0.257 SQ; +VITA100093 PO
== END ==
LOC: M LABSMTC 09:45
PROVIDERS: ATTEND Anesthesiology
DX: Z01.812 Encounter for preprocedural laboratory examination (principal)

== ENCOUNTER 2022-11-21 06:31 | Day surgery (SDC) | payer MEDICARE ==
[~2022-11-21] VITALS: Ht 157.5 cm; Wt 111.9 kg
[~2022-11-21 06:31] MED LIST changes: +NS 1,000 ML IV ONE
[2022-11-21] MEDS ORDERED: SIMETHICONE 40MG/0.6ML DROPS 30ML As Ordered ONE (06:59)
[2022-11-21] MEDS ORDERED: LIDOCAINE 2% 100MG/5ML SDV (FOR ANES.) As Ordered ONE (07:21)
[2022-11-21] MEDS ORDERED: propofoL 200 MG/20 ML VIAL As Ordered ONE (07:21)
[2022-11-21] MEDS ORDERED: fentaNYL 100 MCG/2 ML INJECTION As Ordered ONE (07:21)
[2022-11-21 08:35] VITALS: BP 123/54
== END 2022-11-21 08:50 | disposition home or self-care (01) ==
LOC: M OPP 06:31
PROVIDERS: ATTEND Internal Medicine Gastroenterology
DX: K64.8 Other hemorrhoids (principal); K57.30 Diverticulosis of large intestine without perforation or abscess without bleeding; D12.2 Benign neoplasm of ascending colon; D12.0 Benign neoplasm of cecum; D12.3 Benign neoplasm of transverse colon; K63.89 Other specified diseases of intestine; K31.89 Other diseases of stomach and duodenum; K30 Functional dyspepsia; K62.7 Radiation proctitis; E11.9 Type 2 diabetes mellitus without complications; G47.30 Sleep apnea, unspecified; N18.30 Chronic kidney disease, stage 3 unspecified; Z79.02 Long term (current) use of antithrombotics/antiplatelets; Z79.1 Long term (current) use of non-steroidal anti-inflammatories (NSAID); Z79.4 Long term (current) use of insulin; Z79.899 Other long term (current) drug therapy; Z88.6 Allergy status to analgesic agent; Z91.048 Other nonmedicinal substance allergy status; Z85.46 Personal history of malignant neoplasm of prostate; Z90.5 Acquired absence of kidney; Z23 Encounter for immunization
CPT/HCPCS: 43239; 45380; 45385; 88305; J3010

== ENCOUNTER → 2023-01-03 | Outpatient (CLI) | payer MEDICARE ==
[~2023-01-03] MED LIST changes: -NS 1,000 ML IV ONE
== END ==
LOC: M LAB 09:52
PROVIDERS: ATTEND Physician Assistant
DX: R07.89 Other chest pain (principal)

== ENCOUNTER → 2023-01-22 | Outpatient (REF) | payer MEDICARE ==
[2023-01-22 18:31] LABS: IRON (FE) 77 UG/DL (65-175); PHOSPHORUS LEVEL 3.7 MG/DL (2.4-5.1)
[2023-01-22 18:33] LABS: FOLATE > 24.00 NG/ML (>5.4); TOTAL 25(OH) VITAMIN D 39.4 NG/ML (20.0-100.0)
[2023-01-22 18:34] LABS: VITAMIN B12 LEVEL 598 PG/ML (211-911)
== END ==
LOC: M SFHCRHEU 12:37
PROVIDERS: ATTEND Internal Medicine
DX: R53.83 Other fatigue (principal); M06.00 Rheumatoid arthritis without rheumatoid factor, unspecified site; Z79.899 Other long term (current) drug therapy

== ENCOUNTER → 2023-02-01 | Outpatient (CLI) | payer MEDICARE ==
[2023-02-01 10:28] LABS: PROSTATIC SPECIFIC AG MONITOR 0.04 NG/ML (< 4.00)
[2023-02-01 10:31] LABS: CALCIUM LEVEL 8.9 MG/DL (8.3-10.6); CREATININE FOR GFR 2.17 MG/DL (0.70-1.30); GLOMERULAR FILTRATION RATE 31.6 (>42); POTASSIUM SERUM 4.5 MMOL/L (3.5-5.1)
== END ==
LOC: M WUC 08:36
PROVIDERS: ATTEND Urology
DX: C64.1 Malignant neoplasm of right kidney, except renal pelvis (principal); R97.20 Elevated prostate specific antigen [PSA]

== ENCOUNTER → 2023-02-05 | Outpatient (CLI) | payer MEDICARE ==
[~2023-02-05] MED LIST changes: +GASTROGRAFIN SOLUTION 30ML As Ordered ONE
== END ==
LOC: M RAD 08:57
PROVIDERS: ATTEND Urology
DX: C64.1 Malignant neoplasm of right kidney, except renal pelvis (principal)
CPT/HCPCS: 71250; 74176; Q9963

== ENCOUNTER → 2023-06-13 | Outpatient (CLI) | payer MEDICARE ==
[~2023-06-13] MED LIST changes: -GASTROGRAFIN SOLUTION 30ML As Ordered ONE; +GLIP5TAB17 PO; -GLIP5TAB8 PO; -HYDR200T3 PO; +HYDR200T46 PO
== END ==
LOC: M RAD 08:57
PROVIDERS: ATTEND Orthopaedic Surgery
DX: M25.551 Pain in right hip (principal)

== ENCOUNTER → 2023-07-22 | Outpatient (CLI) | payer MEDICARE ==
[~2023-07-22] MED LIST changes: +ISOVUE-300 61% 100ML VIAL As Ordered ONE; +LIDOCAINE 1% MDV 20ML VIAL As Ordered ONE; +TRIAMCINOLONE ACETONIDE SUSP 40MG/ML 1ML VIAL As Ordered ONE
== END ==
LOC: M RAD 12:52
PROVIDERS: ATTEND Student in an Organized Health Care Education/Training Program
DX: M16.11 Unilateral primary osteoarthritis, right hip (principal)
CPT/HCPCS: 20610; 77002; J3301; Q9967

== ENCOUNTER → 2024-05-14 | Outpatient (CLI) | payer MEDICARE ==
[~2024-05-14] MED LIST changes: -ALBU90AE IH; +ALBU90AE2 IH; -ISOVUE-300 61% 100ML VIAL As Ordered ONE; -LIDOCAINE 1% MDV 20ML VIAL As Ordered ONE; -ROSU10TA6 PO; +ROSU10TA61 PO; -TRIAMCINOLONE ACETONIDE SUSP 40MG/ML 1ML VIAL As Ordered ONE
[2024-05-14 15:53] LABS: PROSTATIC SPECIFIC AG MONITOR 0.15 NG/ML (< 4.00)
[2024-05-14 15:55] LABS: CALCIUM LEVEL 9.8 MG/DL (8.3-10.6); CREATININE FOR GFR 1.86 MG/DL (0.70-1.30); GLOMERULAR FILTRATION RATE 37.7 (>42); POTASSIUM SERUM 4.7 MMOL/L (3.5-5.1)
== END ==
LOC: M PLAIMG 11:59
PROVIDERS: ATTEND Urology
DX: Z85.528 Personal history of other malignant neoplasm of kidney (principal); Z90.5 Acquired absence of kidney; Z79.899 Other long term (current) drug therapy

== ENCOUNTER → 2025-04-28 | Outpatient (CLI) | payer MEDICARE | LOC: M RAD 10:39 | PROVIDERS: ATTEND Urology | DX: Z85.528 Personal history of other malignant neoplasm of kidney (principal) ==